=== PATIENT | female | born 1935 | race Caucasian/White ===

== ENCOUNTER 2022-01-29 10:54 | Observation (INO) ==
[~2022-01-29 10:54] MED LIST: DIAZEPAM 5 MG TABLET PO ONE; VANCOMYCIN 500 MG VIAL IRRIG ONE; VANCOMYCIN INJ 500 MG in SODIUM CHLORIDE 0.9% 100 ML IV ONE
[2022-01-29] MEDS ORDERED: DIAZEPAM 5 MG TABLET ONE (12:16)
[2022-01-29] MEDS: DEXTROSE 5% NACL 0.45% 1,000 ML IV SCH (12:17)
[2022-01-29] MEDS ORDERED: HEPARIN/NACL 0.9% 2 UNITS/ML 1,000 UNIT/500 ML BAG IV ONE (14:00)
[2022-01-29] MEDS ORDERED: LIDOCAINE 1%/EPI INJ 20 ML VIAL ONE (14:00)
[2022-01-29] MEDS ORDERED: VANCOMYCIN 500 MG VIAL ONE (14:05)
[2022-01-29] MEDS ORDERED: fentaNYL 100 MCG/2 ML VIAL ONE (14:14)
[2022-01-29] MEDS ORDERED: MIDAZOLAM 2 MG/2 ML VIAL ONE (14:24)
[2022-01-29] MEDS ORDERED: ONDANSETRON 4 MG/2 ML VIAL IV PRN (15:15)
[2022-01-29] MEDS ORDERED: ACETAMINOPHEN/CODEINE 300-30 MG TABLET PO PRN (15:15)
[2022-01-29] MEDS ORDERED: ACETAMINOPHEN 325 MG TABLET PO PRN (15:15)
[2022-01-29] MEDS ORDERED: ALUMINUM/MAGNES/SIMETH MAX STR 30 ML UDCUP PO PRN (15:15)
[2022-01-29] MEDS ORDERED: DILTIAZEM 50 MG/10 ML VIAL IV ONE ×2 (15:20→15:21)
[2022-01-29] MEDS ORDERED: DILTIAZEM INJ 100 MG in SODIUM CHLORIDE 0.9% 100 ML IV SCH (15:45)
[2022-01-30] MEDS: DEXTROSE 5% NACL 0.45% 1,000 ML IV SCH (06:16)
[2022-01-30 08:19] VITALS: BP 116/60
[2022-01-30] MEDS ORDERED: METOPROLOL SUCCINATE XL 25 MG TABLET PO SCH (09:00)
[2022-01-30] MEDS ORDERED: ASCORBIC ACID 500 MG TABLET PO SCH (09:00)
[2022-01-30] MEDS ORDERED: MIDODRINE 5 MG TABLET PO SCH (09:00)
== END 2022-01-30 11:41 | disposition home or self-care (01) ==
LOC: N.CL 10:54 → N.TELEN 10:54 → N.CL 11:02 → N.TELEN 15:38
PROVIDERS: ADMIT Internal Medicine Interventional Cardiology; ATTEND Internal Medicine Interventional Cardiology